=== PATIENT | female | born 1960 | race African-American/Black ===

== ENCOUNTER 2016-04-24 21:23 | Emergency (ER) | payer OTHER ==
[2016-04-24 21:38] VITALS: BP 136/77; PULSE 77; TEMP 97.5; BMI 38.2
[2016-04-24] MEDS ORDERED: ALBUTEROL SO4 2.5/IPRATROPIUM 0.5 INH SOL 3 ML VIAL.NEB. NEB ONE ×3 (21:55→22:32)
--- NOTE | 2016-04-24 22:22 | PDOC ---
History of Present Illness - General Chief Complaint: Sore Throat Stated Complaint: COUGH Time Seen by Provider: 04/24/16 21:48 History Source: Patient Exam Limitations: No Limitations - History of Present Illness Initial Comments: 04/24/16 22:19 CC SORE THROAT AND COUGH, WO FEVER X 1 WEEK; START ON ZPAK AND MEDROL DOSE CONSTANTINO X 2 DAYS AGO; NO BETTER Timing/Duration: 1 week Severity: mild Associated Symptoms: reports: cough, malaise. denies: chest pain, fever/chills , headaches, nausea/vomiting, rash Past History - Past Medical History Allergies/Adverse Reactions: Allergies Allergy/AdvReac Type Severity Reaction Status Date / Time aspirin Allergy Severe Difficulty Verified 04/24/16 21:37 Breathing shellfish derived Allergy Unknown Verified 04/24/16 21:37 SEAFOOD Allergy Severe Difficulty Uncoded 04/24/16 21:37 Breathing Home Medications: Ambulatory Orders Albuterol Sulfate Inhaler - [Ventolin HFA Inhaler -] 2 inh PO Q4H #1 inh Benzocaine/Menthol [[facility] Sore Throat Lozenge] 1 each MM 5XD PRN #30 lozenge 04/24 Anemia: No Asthma: Yes Cancer: No Cardiac Disorders: No CVA: No COPD: No CHF: No Dementia: No Diabetes: No GI Disorders: Yes (ENLARGED PANCREATIC DUCT.) Disorders: No HTN: No Hypercholesterolemia: No Liver Disease: No Suicide Attempt (Hx): No Seizures: No Thyroid Disease: Yes (HYPO) - Surgical History Abdominal Surgery: No Appendectomy: Yes Orthopedic Surgery: Yes (ARTHROSCOPY) - Immunization History Td Vaccination: No TDAP Vaccination: No Immunization Up to Date: Yes - Psycho/Social/Smoking Cessation Hx Anxiety: No Suicidal Ideation: No Smoking Status: Yes Smoking History: Former smoker Have you smoked in the past 12 months: No Number of Cigarettes Smoked Daily: 6 If you are a former smoker, when did you quit?: 4 Information on smoking cessation initiated: No 'Breaking Loose' booklet given: 12/06/13 Hx Alcohol Use: No Drug/Substance Use Hx: No Substance Use Type: None Hx Substance Use Treatment: No Review of Systems - Review of Systems Constitutional: Yes: Malaise. No: Chills, Fever HEENTM: Yes: Nose Pain, Nose Congestion Respiratory: Yes: Cough, Wheezing. No: SOB with Exertion, Stridor, Hemoptysis Cardiac (ROS): No: Symptoms Reported, Chest Pain ABD/GI: No: Symptoms Reported *Physical Exam - Vital Signs Last Vital Signs Temp Pulse Resp BP Pulse Ox 97.5 F L 77 18 136/77 98 04/24/16 21:34 04/24/16 21:34 04/24/16 21:34 04/24/16 21:34 04/24/16 21:34 - Physical Exam General Appearance: Yes: Appropriately Dressed. No: Apparent Distress HEENT: positive: TMs Normal, Tonsillar Erythema, Nasal Congestion, Other (POST NASAL DRIP) Neck: positive: Tender, Rigid, Supple. negative: Lymphadenopathy (R), Lymphadenopathy (L) Respiratory/Chest: positive: Lungs Clear, Normal Breath Sounds, Accessory Muscle Use. negative: Respiratory Distress Cardiovascular: positive: Regular Rhythm, Regular Rate, Murmur Lymphatic: positive: Adenopathy ED Treatment Course - Medications Given in the ED: ED Medications Discontinued Medications Generic Name Dose Route Start Last Admin Trade Name Freq PRN Reason Stop Dose Admin Albuterol/Ipratropium 1 amp 04/24/16 21:55 04/24/16 21:58 Duoneb - NEB 04/24/16 21:56 1 amp ONCE ONE Administration *DC/Admit/Observation/Transfer Diagnosis at time of Disposition: Acute bronchitis with bronchospasm - Discharge Dispostion Disposition: HOME Condition at time of disposition: Stable Admit: No - Prescriptions Prescriptions: Benzocaine/Menthol [[facility] Sore Throat Lozenge] 1 each MM 5XD PRN #30 lozenge PRN Reason: Sore Throat Albuterol Sulfate Inhaler - [Ventolin HFA Inhaler -] 2 inh PO Q4H #1 inh - Referrals Referrals: Maxwell Duran MD [Primary Care Provider] - - Patient Instructions Additional Instructions: SEE DR DURAN EARLY NEXT WEEK; PLEASE READ MEDICATION WELL AT HOME
[2016-04-24] MEDS ORDERED: ALBUTEROL SO4 0.083% IH SOL 2.5 MG/3 ML VIAL.NEB. NEB ONE (22:32)
[2016-04-24] MEDS ORDERED: IBUPROFEN 400 MG TABLET (FP) PO ONE ×2 (22:33→22:35)
== END 2016-04-24 22:39 | disposition home or self-care (01) ==
LOC: SUPCPDRO 21:23 → JERFT 21:23
PROC: 3E0F7GC Introduction of Other Therapeutic Substance into Respiratory Tract, Via Natural or Artificial Opening (ICD-10-PCS; principal; 2016-04-24)
DX: J20.9 Acute bronchitis, unspecified (principal); J45.909 Unspecified asthma, uncomplicated; Z87.891 Personal history of nicotine dependence
CPT/HCPCS: 99281-25

== ENCOUNTER 2016-06-19 09:33 | Emergency (ER) | payer OTHER ==
[2016-06-19 09:37] VITALS: BP 111/74; PULSE 74; TEMP 97.7; BMI 38.1
[2016-06-19] MEDS ORDERED: OXYCODONE/APAP 5/325MG COMBO TABLET PO ONE (11:22)
[2016-06-19] MEDS ORDERED: OXYCODONE/APAP 5/325MG COMBO TABLET ONE (11:24)
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
--- NOTE | 2016-06-21 12:23 | EKG ---
Test Reason : Blood Pressure : / mmHG Vent. Rate : 059 BPM Atrial Rate : 059 BPM P-R Int : 154 ms QRS Dur : 082 ms QT Int : 424 ms P-R-T Axes : 062 045 027 degrees QTc Int : 419 ms SINUS BRADYCARDIA OTHERWISE NORMAL ECG WHEN COMPARED WITH ECG OF 20-JUN-2015 18:53, NO SIGNIFICANT CHANGE WAS FOUND Confirmed by RENAE JOHNSON MD ([id number]) on 06/21/2016 12:22:23 PM Referred By: Raquel TRAYLOR Confirmed By:RENAE JOHNSON MD
== END 2016-06-19 11:35 | disposition home or self-care (01) ==
LOC: JERFT 09:33 → SUPCPDRO 09:33 → JERFT 11:35
DX: M25.512 Pain in left shoulder (principal); G89.29 Other chronic pain; J45.909 Unspecified asthma, uncomplicated; E03.9 Hypothyroidism, unspecified; M12.9 Arthropathy, unspecified
CPT/HCPCS: 73030-TC-LT; 93005; 93010; 99281-25

== ENCOUNTER 2016-08-09 17:04 | Emergency (ER) | payer OTHER ==
--- NOTE | 2016-08-09 17:18 | PDOC ---
Rapid Medical Evaluation Time Seen by Provider: 08/09/16 17:15 Medical Evaluation: Allergies Allergy/AdvReac Type Severity Reaction Status Date / Time aspirin Allergy Severe Difficulty Verified 08/09/16 17:15 Breathing shellfish derived Allergy Unknown Verified 08/09/16 17:15 SEAFOOD Allergy Severe Difficulty Uncoded 08/09/16 17:15 Breathing 08/09/16 17:15 I have performed a brief in-person evaluation of this patient. The patient presents with a chief complaint of: Worsening pain to R index s/p getting pricked by metal bristle of brush while at work 5 days ago, Pertinent physical exam findings: tenderness to lateral aspect of distal phalanx of R index, no sig swelling, no redness or discharge, no palpable fb I have ordered the following:XR r/o fb The patient will proceed to the ED for further evaluation.
[2016-08-09 17:19] VITALS: BP 134/86; PULSE 80; TEMP 97.8; BMI 39.0
[2016-08-09] MEDS ORDERED: DIPHTH,PERTUSS(ACELL),TET 0.5 ML DISP.SYRIN IM ONE (18:02)
--- NOTE | 2016-08-09 18:09 | PDOC ---
History of Present Illness - General Chief Complaint: Injury Stated Complaint: INJURY Time Seen by Provider: 08/09/16 17:15 History Source: Patient Exam Limitations: No Limitations - History of Present Illness Initial Comments: 08/09/16 18:04 55 yr female with injury to right index finger one week ago at work. 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 Pt here for tetanus shot. Occurred: reports: last week Severity: reports: mild Upper Extremity Pain Location: right: 2nd finger Past History - Past Medical History Allergies/Adverse Reactions: Allergies Allergy/AdvReac Type Severity Reaction Status Date / Time aspirin Allergy Severe Difficulty Verified 08/09/16 18:42 Breathing shellfish derived Allergy Unknown Verified 08/09/16 18:42 SEAFOOD Allergy Severe Difficulty Uncoded 08/09/16 18:42 Breathing Home Medications: Ambulatory Orders Levothyroxine [Synthroid -] 100 mcg PO DAILY 11/28/13 Diphenhydramine HCl [Benadryl -] 25 mg PO Q6H PRN #28 capsule 08/10/16 Methylprednisolone [Medrol Dose Kwame] 4 mg PO ASDIR #21 tablet 08/10/16 Anemia: No Asthma: Yes Cancer: No Cardiac Disorders: No CVA: No COPD: Yes (MILD) CHF: No Dementia: No Diabetes: No GI Disorders: Yes (ENLARGED PANCREATIC DUCT.) Disorders: No HTN: No Hypercholesterolemia: No Liver Disease: No Suicide Attempt (Hx): No Seizures: No Thyroid Disease: Yes (HYPO) - Surgical History Abdominal Surgery: Yes Appendectomy: Yes Orthopedic Surgery: Yes (ARTHROSCOPY) - Immunization History Td Vaccination: No TDAP Vaccination: No Immunization Up to Date: Yes - Psycho/Social/Smoking Cessation Hx Anxiety: No Suicidal Ideation: No Smoking Status: Yes Smoking History: Never smoked Have you smoked in the past 12 months: No Number of Cigarettes Smoked Daily: 6 If you are a former smoker, when did you quit?: 4 Information on smoking cessation initiated: No 'Breaking Loose' booklet given: 12/06/13 Hx Alcohol Use: No Drug/Substance Use Hx: No Substance Use Type: None Hx Substance Use Treatment: No Review of Systems - Review of Systems Able to Perform ROS?: Yes Is the patient limited Romanian proficient: No Constitutional: No: Symptoms Reported HEENTM: No: Symptoms Reported Respiratory: No: Symptoms reported Cardiac (ROS): No: Symptoms Reported : No: Symptoms Reported Integumentary: Yes: Symptoms Reported *Physical Exam - Vital Signs Last Vital Signs Temp Pulse Resp BP Pulse Ox 97.8 F 80 18 134/86 100 08/09/16 17:17 08/09/16 17:17 08/09/16 17:17 08/09/16 17:17 08/09/16 17:17 - Physical Exam General Appearance: Yes: Nourished, Appropriately Dressed HEENT: positive: EOMI, CHARY, Normal Voice, TMs Normal, Pharynx Normal Neck: positive: Supple. negative: Tender Respiratory/Chest: positive: Lungs Clear, Normal Breath Sounds Cardiovascular: positive: Regular Rhythm, Regular Rate Gastrointestinal/Abdominal: positive: Normal Bowel Sounds, Soft Musculoskeletal: positive: Normal Inspection Extremity: positive: Normal Capillary Refill, Normal Inspection, Normal Range of Motion, Other (right index finger nv intact, decreased sensation to lateral tip of the index finger, no redness no drainage. ) Integumentary: positive: Normal Color, Dry, Warm Neurologic: positive: Fully Oriented, Alert, Normal Mood/Affect, Normal Response , Motor Strength 5/5 Medical Decision Making - Medical Decision Making 08/09/16 18:09 cc: index finger injury last week stuck with a metal piece of wire brush will get xray to r/o FB pt has FROM of the finger, sensation decreased to the lateral tip at the DIP will refer to hand surgeon for follow up pt asking for tetanus shot. pt understands the xray findings, the dc plan all follow up procedures have been explained. all questions asked and answered at discharge. pt will follow up with the hand surgeon. 08/10/16 12:44 *DC/Admit/Observation/Transfer Diagnosis at time of Disposition: Finger pain, right - Discharge Dispostion Disposition: HOME Condition at time of disposition: Good - Referrals Referrals: Maxwell Cruz MD [Primary Care Provider] - Pola Amin MD [Staff Physician] - - Patient Instructions Additional Instructions: follow with the hand surgeon for continued pain follow with your employee health department '
== END 2016-08-09 18:30 | disposition home or self-care (01) ==
LOC: JERFT 17:04
DX: S69.81XA Other specified injuries of right wrist, hand and finger(s), initial encounter (principal); W22.8XXA Striking against or struck by other objects, initial encounter; Y93.89 Activity, other specified; Y92.218 Other school as the place of occurrence of the external cause; Y99.0 Civilian activity done for income or pay
CPT/HCPCS: 73140-TC-RT; 90715; 99281-25

== ENCOUNTER → 2016-08-09 | Emergency (ER) | payer OTHER ==
[~2016-08-09] MED LIST: diphenhydrAMINE HCL 25 MG CAPSULE (FP) PO ONE; predniSONE 20 MG TABLET (UD) ONE; predniSONE 20 MG TABLET (UD) PO ONE
--- NOTE | 2016-08-09 18:47 | PDOC ---
Rapid Medical Evaluation Chief Complaint: Allergic Reaction Time Seen by Provider: 08/09/16 18:43 Medical Evaluation: Allergies Allergy/AdvReac Type Severity Reaction Status Date / Time aspirin Allergy Severe Difficulty Verified 08/09/16 18:42 Breathing shellfish derived Allergy Unknown Verified 08/09/16 18:42 SEAFOOD Allergy Severe Difficulty Uncoded 08/09/16 18:42 Breathing 08/09/16 18:43 I have performed a brief in-person evaluation of this patient. The patient presents with a chief complaint of: Seen in ED for finger injury several minutes ago and given tetanus, returns now w/ hoarseness that started immediately after getting tetanus vaccine as per pt. Of note, has had tetanus vaccine in the past with no adverse rxn, no tongue swelling, sob, rash or pruritis Pertinent physical exam findings: Stable w/ +hoarseness, no tongue swelling, stridor w/ clear chest/lungs I have ordered the following: The patient will proceed to the ED for further evaluation. 08/09/16 18:47
[2016-08-09 18:50] VITALS: BP 140/79; PULSE 81; TEMP 97.6; BMI 39.0
--- NOTE | 2016-08-09 20:49 | PDOC ---
History of Present Illness - General Chief Complaint: Allergic Reaction Stated Complaint: THROAT PAIN Time Seen by Provider: 08/09/16 18:43 History Source: Patient Exam Limitations: No Limitations - History of Present Illness Initial Comments: 08/09/16 20:43 55yo Female patient presents to ED after being seen in [facility] about 1 hour ago. Patient initial was seen in [facility] for work injury that required Tetanus vaccination. Patient states that after receiving vaccination she immediately tasted a metallic taste in her mouth. She went upstairs to the cafe and shortly after felt tingling in her lips and throat. Patient states she felt like she was having an allergic reaction. Patient was given Benadryl po with symptoms improvement. Tetanus made by [employer]. Boostrix. Lot [id number], exp: 10-15-2016. 0.5mL. Timing/Duration: reports: just prior to arrival Severity: reports: mild Episode Description: See HPI Possible Cause: Yes: no prior episodes Modifying Factors: worse with: activity, albuterol inhaler, albuterol nebulizer , antibiotics, coughing, lying down, oxygen, rest, other Associated Symptoms: denies: denies symptoms, chest pain/soreness, cough, dizziness, earache, facial pain, fever/chills, headache, lightheadedness, muscle aches, nasal congestion, nasal drainage, shortness of breath, sinus infection, sore throat, wheezing, other Past History - Travel Traveled outside of the country in the last 30 days: No Close contact w/someone who was outside of country & ill: No - Past Medical History Allergies/Adverse Reactions: Allergies Allergy/AdvReac Type Severity Reaction Status Date / Time aspirin Allergy Severe Difficulty Verified 08/09/16 18:42 Breathing shellfish derived Allergy Unknown Verified 08/09/16 18:42 SEAFOOD Allergy Severe Difficulty Uncoded 08/09/16 18:42 Breathing Home Medications: Ambulatory Orders Levothyroxine [Synthroid -] 100 mcg PO DAILY 11/28/13 Methylprednisolone [Medrol Dose Kwame] 4 mg PO ASDIR #21 tablet 08/09/16 Anemia: No Asthma: Yes Cancer: No Cardiac Disorders: No CVA: No COPD: Yes (MILD) CHF: No Dementia: No Diabetes: No GI Disorders: Yes (ENLARGED PANCREATIC DUCT.) Disorders: No HTN: No Hypercholesterolemia: No Liver Disease: No Suicide Attempt (Hx): No Seizures: No Thyroid Disease: Yes (HYPO) - Surgical History Abdominal Surgery: Yes Appendectomy: Yes Orthopedic Surgery: Yes (ARTHROSCOPY) - Immunization History Td Vaccination: No TDAP Vaccination: No Immunization Up to Date: Yes - Psycho/Social/Smoking Cessation Hx Anxiety: No Suicidal Ideation: No Smoking Status: Yes Smoking History: Never smoked Have you smoked in the past 12 months: No Number of Cigarettes Smoked Daily: 6 If you are a former smoker, when did you quit?: 4 Information on smoking cessation initiated: No 'Breaking Loose' booklet given: 12/06/13 Hx Alcohol Use: No Drug/Substance Use Hx: No Substance Use Type: None Hx Substance Use Treatment: No Respiratory Specific PMHX - Complaint Specific PMHX Angina: No Bronchitis: No Pneumonia: No Pulmonary Embolus: No TB (Tuberculosis): No Review of Systems - Review of Systems Able to Perform ROS?: Yes Is the patient limited [place]ese proficient: No HEENTM: Yes: Other (Change in voice.). No: Eye Pain, Blurred Vision, Tearing, Double Vision, Ear Pain, Ear Discharge, Nose Pain, Nose Congestion, Tinnitus, Hearing Loss, Throat Pain, Throat Swelling, Mouth Pain, Dental Problems, Difficulty Swallowing, Mouth Swelling Respiratory: No: Cough, Wheezing Cardiac (ROS): No: Chest Pain, Lightheadedness, Syncope, Chest Tightness ABD/GI: No: Diarrhea, Difficulty Swallowing, Nausea, Vomiting All Other Systems: Reviewed and Negative *Physical Exam - Vital Signs Last Vital Signs Temp Pulse Resp BP Pulse Ox 97.6 F 81 18 140/79 100 08/09/16 18:43 08/09/16 18:43 08/09/16 18:43 08/09/16 18:43 08/09/16 18:43 - Physical Exam General Appearance: Yes: Nourished, Appropriately Dressed. No: Apparent Distress, Mild Distress, Moderate Distress, Severe Distress HEENT: positive: EOMI, CHARY, Normal ENT Inspection, Normal Voice, Symmetrical, TMs Normal, Pharynx Normal. negative: Pharyngeal Erythema, Tonsillar Exudate, Tonsillar Erythema, Nasal Congestion, Rhinorrhea, TM Bulging, TM Dull, TM Erythema, Excessive drooling Neck: positive: Trachea midline, Supple. negative: Tender, Normal Thyroid, Rigid, Decreased range of motion, Stridor, Lymphadenopathy (R), Lymphadenopathy (L), Rigidity Respiratory/Chest: positive: Lungs Clear, Normal Breath Sounds. negative: Chest Tender, Respiratory Distress, Accessory Muscle Use, Labored Respiration, Rapid RR, Decreased Breath Sounds, Paradoxal Breathing, Crackles, Rales, Rhonchi , Stridor, Wheezing Cardiovascular: positive: Regular Rhythm, Regular Rate. negative: Tachycardia Gastrointestinal/Abdominal: positive: Normal Bowel Sounds, Soft. negative: Distended, Guarding, Rebound, Tenderness, Hernia, Mass Musculoskeletal: positive: Normal Inspection. negative: CVA Tenderness Extremity: positive: Normal Capillary Refill, Normal Inspection, Normal Range of Motion. negative: Pedal Edema, Swelling, Calf Tenderness, Erythema, Inflammation Integumentary: positive: Normal Color, Dry, Warm. negative: Erythema, Pale, Cold, Clammy, Diaphoresis, Moist, Hives, Rash, Swelling Neurologic: positive: tattoo technician II-XII NML intact, Fully Oriented, Alert, Normal Mood/ Affect, Normal Response, Motor Strength 06/25 ED Treatment Course - Medications Given in the ED: ED Medications Discontinued Medications Generic Name Dose Route Start Last Admin Trade Name Adrianna PRN Reason Stop Dose Admin Diphenhydramine HCl 25 mg 08/09/16 18:49 08/09/16 18:53 Benadryl - PO 08/09/16 18:50 25 mg ONCE ONE Administration *DC/Admit/Observation/Transfer Diagnosis at time of Disposition: Allergic reaction caused by a drug Qualifiers: Encounter type: initial encounter Qualified Code(s): T78.40XA - Allergy, unspecified, initial encounter - Discharge Dispostion Disposition: HOME Condition at time of disposition: Improved Admit: No - Prescriptions Prescriptions: Methylprednisolone [Medrol Dose Kwame] 4 mg PO ASDIR #21 tablet - Patient Instructions Printed Discharge Instructions: DI for Adverse Drug Reaction -- Allergic Additional Instructions: FOLLOW UP WITH DR DURAN THIS WEEK. CALL TO SCHEDULE APPOINTMENT. TAKE MEDICATIONS PRESCRIBED. RETURN IF SYMPTOMS WORSEN OR ANY CONCERNS FOR FURTHER EVALUATION. Print Language: BELARUSIAN
== END | disposition home or self-care (01) ==
LOC: JER 18:40
DX: R20.2 Paresthesia of skin (principal); T50.A15A Adverse effect of pertussis vaccine, including combinations with a pertussis component, initial encounter; Y92.233 Cafeteria of hospital as the place of occurrence of the external cause
CPT/HCPCS: 99281-25

== ENCOUNTER 2016-09-26 16:10 | Emergency (ER) | payer OTHER ==
[2016-09-26 16:27] VITALS: BP 122/87; PULSE 86; TEMP 98; BMI 31.0
[2016-09-26] MEDS ORDERED: ACETAMINOPHEN 500 MG TABLET (FP) PO ONE (17:22)
[2016-09-26] MEDS ORDERED: ACETAMINOPHEN 500 MG TABLET (FP) ONE (17:25)
--- NOTE | 2016-09-26 17:28 | PDOC ---
History of Present Illness - General Chief Complaint: Pain, Acute Stated Complaint: SWOLLEN HAND Time Seen by Provider: 09/26/16 17:05 History Source: Patient Exam Limitations: No Limitations - History of Present Illness Initial Comments: 09/26/16 18:46 MY CHIEF COMPLAINT: LEFT UPPER ARM SUDDEN BRUISE, LEFT UPPER ARM SWELLING , LEFT HAND PAIN History of Present illness: Patient is a 55-year-old female with a history of hypothyroidism, hyperlipidemia, carpel tunnel and COPD and enlargement of pancreatic duct here today concerned about noticing a bruise on her left medial upper arm yesterday and noticing swelling slightly above her left elbow medial aspect yesterday. Patient also reports having left mid palm pain intermittently for the last 4 days with numbness of second and third finger on 09/23/16 and 2016. Patient denies any injury to her left arm or elbow area or forearm or hand. 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 She denies any neck pain. He denies any other injuries. Or any other symptoms. 09/26/16 18:49 Timing/Duration: intermittent (bruise left medial upper arm, left ) Severity: mild (l) Associated Symptoms: reports: other (bruise left medial upper arm, swelling slightly proximal to left elbow medially, pain mid left palm intermittently) Past History - Past Medical History Allergies/Adverse Reactions: Allergies Allergy/AdvReac Type Severity Reaction Status Date / Time aspirin Allergy Severe Difficulty Verified 09/26/16 16:23 Breathing shellfish derived Allergy Unknown Verified 09/26/16 16:23 SEAFOOD Allergy Severe Difficulty Uncoded 09/26/16 16:23 Breathing Home Medications: Ambulatory Orders Levothyroxine [Synthroid -] 100 mcg PO DAILY 11/28/13 Rosuvastatin Calcium [Crestor] 20 mg PO HS 09/26/16 Anemia: No Asthma: Yes Cancer: No Cardiac Disorders: No CVA: No COPD: Yes (MILD) CHF: No Dementia: No Diabetes: No GI Disorders: Yes (ENLARGED PANCREATIC DUCT.) Disorders: No HTN: No Hypercholesterolemia: No Liver Disease: No Suicide Attempt (Hx): No Seizures: No Thyroid Disease: Yes (HYPO) - Surgical History Abdominal Surgery: Yes Appendectomy: Yes Orthopedic Surgery: Yes (ARTHROSCOPY) - Immunization History Td Vaccination: No TDAP Vaccination: No Immunization Up to Date: Yes - Psycho/Social/Smoking Cessation Hx Anxiety: No Suicidal Ideation: No Smoking Status: Yes Smoking History: Former smoker Have you smoked in the past 12 months: No Number of Cigarettes Smoked Daily: 6 If you are a former smoker, when did you quit?: 5 Information on smoking cessation initiated: No 'Breaking Loose' booklet given: 12/06/13 Hx Alcohol Use: No Drug/Substance Use Hx: No Substance Use Type: None Hx Substance Use Treatment: No Review of Systems - Review of Systems Able to Perform ROS?: Yes Constitutional: No: Symptoms Reported HEENTM: No: Symptoms Reported Respiratory: No: Symptoms reported Cardiac (ROS): No: Symptoms Reported ABD/GI: No: Symptoms Reported : No: Symptoms Reported Musculoskeletal: Yes: Joint Pain (left palm mid intermittent for 4 days with numbness of left 2nd & 3rd fingers on 09/23& 09/24), Joint Swelling (left dorsal hand/fingers yesterday ), Other (left medial arm slightly proximal to left elbow , bruise quarter size left upper medial arm) Integumentary: Yes: Bruising (left upper medial arm quarter size bruise) Neurological: Yes: Numbness (left 2nd& 3rd fingers ) *Physical Exam - Vital Signs Last Vital Signs Temp Pulse Resp BP Pulse Ox 98.0 F 86 17 122/87 99 09/26/16 16:24 09/26/16 16:24 09/26/16 16:24 09/26/16 16:24 09/26/16 16:24 - Physical Exam General Appearance: Yes: Appropriately Dressed Neck: positive: Lymphadenopathy (R). negative: Tender, Lymphadenopathy (L), Rigidity, Tender lateral, Tender midline Respiratory/Chest: positive: Lungs Clear, Normal Breath Sounds. negative: Chest Tender, Respiratory Distress Cardiovascular: positive: Regular Rhythm, Regular Rate, S1, S2 Comments:: 09/26/16 17:34 radial pulse left 4+ Musculoskeletal: negative: Normal Inspection, CVA Tenderness, CVA Tenderness (R) , CVA Tenderness (L) Extremity: positive: Normal Capillary Refill, Normal Range of Motion (left shoulder/elbow, wrist and all digits left ahnd ), Tender, Swelling (left medial upper arm slightly proximal to left elbow). negative: Normal Inspection (left medial arm slightly proximal to left elbow) Integumentary: positive: Bruising (left upper medial arm quarter size bruise) Neurologic: positive: Alert, Normal Response, Motor Strength 5/5 (left arm ), Respond to painful stimul, Responsive, Other (negative Tinel/phalen left ). negative: Numbness, Sensory Deficit (left hand and all digits ) Procedures - Consent Consent obtained: From Patient - Splinting Splint Location: Left: Wrist Pre-Proc Neuro Vasc Exam: normal Sling: No Complications: No Medical Decision Making - Medical Decision Making 09/26/16 18:51 Patient is a 55-year-old female with a history of hypothyroidism, hyperlipidemia, carpel tunnel and COPD and enlargement of pancreatic duct here today concerned about noticing a bruise on her left medial upper arm yesterday and noticing swelling slightly above her left elbow medial aspect yesterday. Patient also reports having left mid palm pain intermittently for the last 4 days with numbness of second and third finger on 09/23/16 and 09/24/2016. Patient denies any injury to her left arm or elbow area or forearm or hand. 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 She denies any neck pain. He denies any other injuries. Or any other symptoms. Left upper arm spontaneous bruising quarter size Left medial upper arm swelling rule out DVT Left Palm intermittent pain system was symptoms of carpal tunnel Plan: Venous US of left upper arm to rule out DVT NEGATIVE WRIST IMMOBILIZER LEFT WRIST FOLLOW UP WITH YOUR ORTHOPEDIST 09/26/16 19:35 09/26/16 23:40 *DC/Admit/Observation/Transfer Diagnosis at time of Disposition: Swelling of arm, Hand pain, left Superficial bruising of upper limb Qualifiers: Encounter type: initial encounter Laterality: left Qualified Code(s): S40.022A - Contusion of left upper arm, initial encounter - Discharge Dispostion Disposition: HOME Condition at time of disposition: Stable - Referrals Referrals: Maxwell Cruz MD [Primary Care Provider] - - Patient Instructions Additional Instructions: Follow-up with your orthopedist as soon as possible for further evaluation Avoid any heavy lifting using her left arm or any exercise for the next few days until cleared by orthopedist to do so Take acetaminophen as needed as directed by exhaust and muffler repairer for pain Return to emergency room if increased swelling of left arm redness or fever Wear a wrist immobilizer during the day take off at night Patient voiced understanding of discharge instructions and all questions were answered - Post Discharge Activity Work/School Note: Back to Work
== END 2016-09-26 19:42 | disposition home or self-care (01) ==
LOC: JERFT 16:10
DX: S40.022A Contusion of left upper arm, initial encounter (principal); M79.89 Other specified soft tissue disorders; M79.642 Pain in left hand; E03.9 Hypothyroidism, unspecified; E78.5 Hyperlipidemia, unspecified; J44.9 Chronic obstructive pulmonary disease, unspecified; G56.00 Carpal tunnel syndrome, unspecified upper limb
CPT/HCPCS: 93971; 99281-25

== ENCOUNTER 2016-10-08 05:49 | Day surgery (SDC) | payer OTHER ==
[2016-10-07 10:43] VITALS: BMI 31.1
[2016-10-08] MEDS ORDERED: LIDOCAINE HCL 2% (20ML MULTI-DOSE VIAL) NR ONE (07:02)
[2016-10-08] MEDS ORDERED: MIDAZOLAM HCL 2 MG/2 ML SINGLE DOSE VIAL ONE (07:19)
[2016-10-08] MEDS ORDERED: PROPOFOL 20 ML ONE ×2 (07:31)
[2016-10-08] MEDS ORDERED: SUCCINYLCHOLINE CHLORIDE 200 MG/10 ML VIAL ONE (07:31)
[2016-10-08] MEDS ORDERED: ONDANSETRON 4 MG/2 ML VIAL ONE (07:45)
[2016-10-08] MEDS ORDERED: ceFAZolin SODIUM 1 GM VIAL ONE (07:48)
[2016-10-08] MEDS ORDERED: LIDOCAINE HCL 1%, 10 MG/ML (20ML VIAL) IJ ONE (07:56)
[2016-10-08 09:02] VITALS: BP 124/71; PULSE 76; TEMP 98
--- NOTE | 2016-10-12 00:54 | OP ---
DATE OF OPERATION: 10/08/2016 SURGEON: Lane Nava M.D. FLOOR COVERINGS INSTALLER: Cherri Cruz PREOPERATIVE DIAGNOSIS: Left carpal tunnel syndrome. POSTOPERATIVE DIAGNOSIS: Left carpal tunnel syndrome. PROCEDURE: Left carpal tunnel release. FINDINGS: Thickened transcarpal ligament with a median nerve. PROCEDURE: Under sterile conditions, the upper extremity was prepped and draped in a sterile fashion. Incision was made along the longitudinal portion of the carpal tunnel. A longitudinal incision was made along the proximal portion of the palm, following the palm crease. This was taken down to the transcarpal ligament, which was released initially with scalpel and then extended proximally and distally using blunt tenotomy scissors. The median nerve was identified and completely released from impingement by the transcarpal ligament. The wound was then irrigated with copious amounts of irrigation. Skin was closed with 5-0 nylon in single interrupted sutures. Dmitry [id number]
== END 2016-10-08 09:16 | disposition home or self-care (01) ==
LOC: FASU 05:49
PROVIDERS: ATTEND Orthopaedic Surgery
PROC: 01N50ZZ Release Median Nerve, Open Approach (ICD-10-PCS; principal; 2016-10-08 07:51)
DX: G56.02 Carpal tunnel syndrome, left upper limb (principal)

== ENCOUNTER 2017-03-08 15:40 | Emergency (ER) | payer OTHER ==
[2017-03-08 16:20] VITALS: BP 140/88; PULSE 80; TEMP 98.2; BMI 31.1
[2017-03-08] MEDS ORDERED: traMADol HCL 50 MG TABLET PO ONE (16:20)
--- NOTE | 2017-03-08 16:20 | PDOC ---
Rapid Medical Evaluation Time Seen by Provider: 03/08/17 16:15 Medical Evaluation: Allergies Allergy/AdvReac Type Severity Reaction Status Date / Time aspirin Allergy Severe Difficulty Verified 10/07/16 10:30 Breathing shellfish derived Allergy Unknown Verified 10/07/16 10:30 SEAFOOD Allergy Severe Difficulty Uncoded 10/07/16 10:30 Breathing 03/08/17 16:16 I have performed a brief in-person evaluation of this patient. The patient presents with a chief complaint of pain to left shoulder that radiates from left side of neck since Tuesday. Reports no injury or heavy lifting. States had same pain in the past and diagnosed with arthritis treated with ibuprofen. Took no medication today so far. Pertinent physical exam findings: NAD HEENT: neck supple, mskL: no mid cervical spinal tenderness or para cervical tenderness FROM of left shoulder lungs clear bilat I have ordered the following: analgesia The patient will proceed to the Ed for further evaluation.
--- NOTE | 2017-03-08 18:15 | PDOC ---
History of Present Illness - General Chief Complaint: Pain, Acute Stated Complaint: LEFT SIDE PAIN Time Seen by Provider: 03/08/17 16:15 History Source: Patient Exam Limitations: No Limitations Past History - Past Medical History Allergies/Adverse Reactions: Allergies Allergy/AdvReac Type Severity Reaction Status Date / Time aspirin Allergy Severe Difficulty Verified 03/08/17 16:16 Breathing shellfish derived Allergy Unknown Verified 03/08/17 16:16 SEAFOOD Allergy Severe Difficulty Uncoded 03/08/17 16:16 Breathing Home Medications: Ambulatory Orders Levothyroxine [Synthroid -] 100 mcg PO DAILY 11/28/13 Oxycodone HCl/Acetaminophen [Percocet 5-325 mg Tablet] 1 tab PO Q6H PRN #10 tablet MDD 6 tabs 03/08/17 Anemia: No Asthma: Yes Cancer: No Cardiac Disorders: No CVA: No COPD: Yes (MILD) CHF: No Dementia: No Diabetes: No GI Disorders: Yes (ENLARGED PANCREATIC DUCT.) Disorders: No HTN: No Hypercholesterolemia: No Liver Disease: No Seizures: No Thyroid Disease: Yes (HYPO) - Surgical History Abdominal Surgery: Yes Appendectomy: Yes Cardiac Surgery: No Cholecystectomy: No Lung Surgery: No Neurologic Surgery: No Orthopedic Surgery: Yes (ARTHROSCOPY R KNEE) - Immunization History Td Vaccination: No TDAP Vaccination: No Immunization Up to Date: Yes - Suicide/Smoking/Psychosocial Hx Smoking Status: Yes Smoking History: Never smoked Have you smoked in the past 12 months: No Number of Cigarettes Smoked Daily: 6 If you are a former smoker, when did you quit?: 5 yrs ago Information on smoking cessation initiated: No 'Breaking Loose' booklet given: 12/06/13 Hx Alcohol Use: No Drug/Substance Use Hx: No Substance Use Type: None Hx Substance Use Treatment: No *Physical Exam - Vital Signs Last Vital Signs Temp Pulse Resp BP Pulse Ox 98.2 F 80 14 140/88 100 03/08/17 16:17 03/08/17 16:17 03/08/17 16:17 03/08/17 16:17 03/08/17 16:17 ED Treatment Course - RADIOLOGY Radiology Studies Ordered: Category Date Time Status SHOULDER-LEFT [RAD] Stat Radiology 03/08/17 18:03 Ordered - Medications Given in the ED: ED Medications Discontinued Medications Generic Name Dose Route Start Last Admin Trade Name Freq PRN Reason Stop Dose Admin Tramadol HCl 50 mg 03/08/17 16:20 03/08/17 17:38 Ultram - PO 03/08/17 16:21 Not Given ONCE ONE *DC/Admit/Observation/Transfer Diagnosis at time of Disposition: Shoulder pain, left Qualifiers: Chronicity: chronic Qualified Code(s): M25.512 - Pain in left shoulder - Discharge Dispostion Disposition: HOME Condition at time of disposition: Good - Prescriptions Prescriptions: Oxycodone HCl/Acetaminophen [Percocet 5-325 mg Tablet] 1 tab PO Q6H PRN #10 tablet MDD 6 tabs PRN Reason: Severe Pain - Referrals Referrals: Maxwell Cruz MD [Primary Care Provider] - Harjinder Cochran MD [Staff Physician] - - Patient Instructions Additional Instructions: take percocet for severe pain as needed use the sling while awake remove to sleep and bathe apply ice every 2hrs for 20 minutes to the area of pain please follow with your primary care or with the orthopedist for follow up this week or next week - Post Discharge Activity Forms/Work/School Notes: Back to Work
== END 2017-03-08 18:30 | disposition home or self-care (01) ==
LOC: JERFT 15:40
DX: M25.512 Pain in left shoulder (principal); J45.909 Unspecified asthma, uncomplicated; J44.9 Chronic obstructive pulmonary disease, unspecified; Z87.891 Personal history of nicotine dependence
CPT/HCPCS: 73030-TC-LT; 99281-25

== ENCOUNTER 2017-05-27 05:54 | Day surgery (SDC) | payer OTHER ==
[2017-05-23 11:01] VITALS: BMI 39.0
[2017-05-27] MEDS ORDERED: DEXAMETHASONE SOD PHOSPHATE/PF 10 MG/ML SDV ONE (06:52)
[2017-05-27] MEDS ORDERED: ROPIVACAINE HCL 0.5% 30ML VIAL ONE (06:52)
[2017-05-27] MEDS ORDERED: MIDAZOLAM HCL 2 MG/2 ML SINGLE DOSE VIAL ONE (06:52)
[2017-05-27] MEDS ORDERED: PROPOFOL 20 ML ONE ×3 (07:40)
[2017-05-27] MEDS ORDERED: EPINEPHrine 1:1,000 1 MG/1 ML - 30ML VIAL (INJECTION) ONE (07:40)
[2017-05-27] MEDS ORDERED: SUCCINYLCHOLINE CHLORIDE 200 MG/10 ML VIAL ONE (07:41)
[2017-05-27] MEDS ORDERED: ONDANSETRON 4 MG/2 ML VIAL IVPUSH PRN (08:55)
[2017-05-27] MEDS ORDERED: oxyCODONE HCL 5 MG TABLET PO PRN ×2 (08:55)
[2017-05-27] MEDS ORDERED: PROMETHAZINE HCL 25 MG/1 ML VIAL IVPB PRN (08:55)
[2017-05-27] MEDS ORDERED: LACTATED RINGERS SOLUTION 1,000 ML IV SCH (09:00)
[2017-05-27] MEDS ORDERED: PROMETHAZINE HCL 25 MG/1 ML VIAL ONE (09:38)
[2017-05-27 10:39] VITALS: TEMP 98
[2017-05-27] MEDS ORDERED: oxyCODONE HCL 5 MG TABLET ONE (12:26)
[2017-05-27 13:48] VITALS: BP 135/78; PULSE 71
--- NOTE | 2017-05-29 20:41 | OP ---
DATE OF OPERATION: 05/27/2017 LOCATION: [facility] SURGEON: Abdon Blake MD [employer] INFORMATION CLERK: PREOPERATIVE DIAGNOSIS: 1. Left shoulder rotator cuff tear. 2. Left shoulder adhesive capsulitis. 3. Left shoulder impingement syndrome. 4. Left shoulder acromioclavicular joint disease. 5. Left shoulder superior labral tear anterior posterior type 4. POSTOPERATIVE DIAGNOSIS: 1. Left shoulder rotator cuff tear. 2. Left shoulder adhesive capsulitis. 3. Left shoulder impingement syndrome. 4. Left shoulder acromioclavicular joint disease. 5. Left shoulder superior labral anterior posterior type 4. PROCEDURE: 1. Left shoulder arthroscopy with arthroscopic rotator cuff repair. CPT code 67563. 2. Left shoulder arthroscopy with lysis and resection of adhesions. CPT code 12325. 3. Left shoulder arthroscopy with subacromial decompression. CPT code 02447. 4. Left shoulder arthroscopy with resection distal clavicle, acromioclavicular joint. CPT code 83437. 5. Left shoulder arthroscopy with debridement. CPT code 90414. FINDINGS: 1. Full-thickness rotator cuff tear, anterior supraspinatus. 2. Biceps dislocation with extensive subscapularis tear. 3. Type 2-4 superior labral tear extending into the biceps tendon. 4. Anterior labral fraying. 5. Posterior labral fraying. 6. Type II acromion with anterolateral spurring. 7. distal clavicle with large inferior osteophyte. 8. Partial-thickness infraspinatus tear. 9. Full-thickness supraspinatus tear. REPAIR TYPE: Single mattress suture was placed into the supraspinatus and secured to a bleeding bone bed using the OPUS technique. Biceps tendon was released and debrided back to superior labrum. Subscapularis tear was also debrided, taking it back to a stable portion. PROCEDURE: Informed consent was obtained. The patient was taken to the operating room where the upper extremity was prepped and draped in a sterile fashion. The shoulder was manipulated for a full range of motion. Posterior incision portal was made and directed to glenohumeral joint. Under direct visualization, an anterior incision and portal was made. Extensive synovitis, as well as chondral injuries throughout the glenohumeral joint were dbrided and removed. Any identified labral injuries, including superior labral tear, anterior and posterior, and anterior labrum torn portions were removed as well. Rotator cuff was visualized and noted to have full-thickness tear. The edges were debrided. Posterior incision portal was redirected to subacromial space where a lateral incision portal was made. Excessive and thickened scar tissue noted throughout the subacromial space, including bursal and scar tissue, were removed. The type 2 acromion was converted into a flattened type 1 using a silvia for subacromial decompression. Distal inferior spur at the distal clavicle was also dbrided with the use of accessory portal in the AC joint. The edges of the rotator cuff were identified. Sutures were placed into the rotator cuff and secured using anchors throughout the greater tuberosity. Prior to securing, a bleeding bed was made using a small silvia, creating a bleeding surface of the rotator cuff insertion. The shoulder was then drained. A single suture as placed on all portals and a sterile dressing was placed. The patient was transferred to the recovery room without complication. ABDON BLAKE M.D. [id number]
== END 2017-05-27 13:30 | disposition home or self-care (01) ==
LOC: FASU 05:54
PROVIDERS: ATTEND Orthopaedic Surgery
PROC: 0RNK4ZZ Release Left Shoulder Joint, Percutaneous Endoscopic Approach (ICD-10-PCS; 2017-05-27)
PROC: 0PBB4ZZ Excision of Left Clavicle, Percutaneous Endoscopic Approach (ICD-10-PCS; 2017-05-27)
PROC: 0RBK4ZZ Excision of Left Shoulder Joint, Percutaneous Endoscopic Approach (ICD-10-PCS; 2017-05-27)
PROC: 0MM24ZZ Reattachment of Left Shoulder Bursa and Ligament, Percutaneous Endoscopic Approach (ICD-10-PCS; 2017-05-27)
PROC: 0LB24ZZ Excision of Left Shoulder Tendon, Percutaneous Endoscopic Approach (ICD-10-PCS; principal; 2017-05-27 07:30)
DX: M75.102 Unspecified rotator cuff tear or rupture of left shoulder, not specified as traumatic (principal); M75.02 Adhesive capsulitis of left shoulder; M75.42 Impingement syndrome of left shoulder; M19.012 Primary osteoarthritis, left shoulder; S43.432A Superior glenoid labrum lesion of left shoulder, initial encounter; X58.XXXA Exposure to other specified factors, initial encounter; Y93.9 Activity, unspecified; Y92.9 Unspecified place or not applicable
CPT/HCPCS: 94760

== ENCOUNTER 2019-05-18 19:10 | Emergency (ER) | payer OTHER ==
[2019-05-18 19:16] VITALS: BP 121/100; PULSE 86; TEMP 97.5; BMI 37.1
[2019-05-18] MEDS ORDERED: SODIUM CHLORIDE 0.9% 500 ML INFUS.BAG IV ONE (19:40)
--- NOTE | 2019-05-18 20:15 | PDOC ---
History of Present Illness - General Chief Complaint: Pain Stated Complaint: NECK PAIN Time Seen by Provider: 05/18/19 19:23 History Source: Patient Exam Limitations: No Limitations - History of Present Illness Initial Comments: 05/18/19 20:04 Patient is a 58-year-old with a history of hypothyroidism and asthma who presents to the ED with complaint of right ear pain and right skull pain behind her right ear. She states she woke up this morning and felt pain in her right ear. She thought she slept on it wrong. The pain progressed to her skull just behind her right ear and has been worsening all day. She denies any fevers or chills. She does admit to taking 2 muscle relaxers and one Tylenol 3 without any relief. She denies any recent URI. She denies any recent travel. The patient states the pain is unrelenting. She denies any headache and states the pain is solely on the skull. Past History - Past Medical History Allergies/Adverse Reactions: Allergies Allergy/AdvReac Type Severity Reaction Status Date / Time aspirin Allergy Severe Difficulty Verified 05/18/19 19:16 Breathing SEAFOOD Allergy Severe Difficulty Uncoded 05/18/19 19:16 Breathing Home Medications: Ambulatory Orders Levothyroxine [Synthroid -] 100 mcg PO DAILY 11/28/13 Albuterol Sulfate Inhaler - [Ventolin HFA Inhaler -] 1 puff IH QID PRN 05/23/17 Hydrocodone/Acetaminophen [Hydrocodone-Acetamin 5-325 mg] 1 each PO HS PRN 05/23/17 Amoxicillin/Potassium Clav [Augmentin 875-125 Tablet] 1 each PO BID 10 Days #20 tablet 05/18/19 Anemia: No Asthma: Yes (MILD) Cancer: No Cardiac Disorders: No CVA: No COPD: Yes (MILD) CHF: No Dementia: No Diabetes: No GI Disorders: Yes (ENLARGED PANCREATIC DUCT.) Disorders: No HTN: No Hypercholesterolemia: No Liver Disease: No Seizures: No Thyroid Disease: Yes (HYPO) Other medical history: chronic neck pain - Surgical History Abdominal Surgery: Yes (SEE BELOW) Appendectomy: Yes ( CHILD) Cardiac Surgery: No Cholecystectomy: No Lung Surgery: No Neurologic Surgery: No Orthopedic Surgery: Yes (ARTHROSCOPY R KNEE) - Immunization History Td Vaccination: No TDAP Vaccination: No Immunization Up to Date: Yes - Psycho Social/Smoking Cessation Hx Smoking Status: Yes Smoking History: Never smoked Have you smoked in the past 12 months: No Number of Cigarettes Smoked Daily: 6 If you are a former smoker, when did you quit?: 2014 'Breaking Loose' booklet given: 12/06/13 Hx Alcohol Use: No Drug/Substance Use Hx: No Substance Use Type: None Hx Substance Use Treatment: No Review of Systems - Review of Systems Comments:: 05/18/19 20:06 - Review of Systems Able to Perform ROS?: Yes Constitutional: No: Fever, Chills, Loss of Appetite, Night Sweats, Weakness HEENTM: No: Eye Pain, Vision changes, Throat Pain, Throat Swelling, Mouth Pain, Difficulty Swallowing; positive right ear pain and right skull pain Respiratory: No: Cough, Shortness of Breath, Wheezing, Sputum Production Cardiac (ROS): No: Chest Pain, Chest Tightness, Palpitations, Irregular Heart Beat, Edema ABD/GI: No: Nausea, Vomiting, Abdominal Pain, Diarrhea : No Dysuria, No Hematuria, No Frequency, No Urgency Musculoskeletal: No: Muscle Pain, Back Pain, Joint Pain, Muscle Weakness, Neck Pain Integumentary: No: Lesions, Rash Neurological: No: Headache, Numbness, Tingling, Weakness, Speech Difficulties *Physical Exam - Vital Signs Last Vital Signs Temp Pulse Resp BP Pulse Ox 97.5 F L 86 18 121/100 98 05/18/19 19:12 05/18/19 19:12 05/18/19 19:12 05/18/19 19:12 05/18/19 19:12 - Physical Exam 05/18/19 20:07 - Physical Exam General Appearance: Nourished, Appropriately Dressed, No Distress HEENT: EOMI, Normal Voice, No Pharyngeal Erythema, No Muffled/Hoarse voice, No Tonsillar Exudate, No Tonsillar Erythema, No Nasal Congestion, No Rhinorrhea, Hearing Grossly Normal; significant tenderness to palpation to the right mastoid region and right occipital region. No muscle tenderness to the neck appreciated. Right TM dull and appears scarred. No TM perforation appreciated. Left TM within normal limits but also does appear scarred. Neck: Supple, No Lymphadenopathy (R), No Lymphadenopathy (L), No Rigidity, No Decreased range of motion; no tenderness to palpation to the diffuse neck Respiratory/Chest: Lungs Clear, Normal Breath Sounds. No Respiratory Distress, No Accessory Muscle Use Cardiovascular: Regular Rhythm, Regular Rate, S1, S2 Gastrointestinal/Abdominal: Normal Bowel Sounds, Soft. Non-tender, No Guarding, No Rebound, No Rigidity Musculoskeletal: Normal Inspection. No Decreased Range of Motion Extremity: Normal Capillary Refill, Normal Inspection Integumentary: Normal Color, Dry. No Rash Neurologic: autopsy pathologist II-XII NML intact, Fully Oriented, Alert, Normal Mood/Affect, Normal Response ED Treatment Course - LABORATORY CBC & Chemistry Diagram: 05/18/19 19:50 05/18/19 19:50 - RADIOLOGY Radiology Studies Ordered: Category Date Time Status TEMPORAL BONES CT WITH CONTR [CT] Stat CT Scan 05/18/19 19:41 Ordered - Medications Given in the ED: ED Medications Discontinued Medications Generic Name Dose Route Start Last Admin Trade Name Freq PRN Reason Stop Dose Admin Sodium Chloride 1,000 ml 05/18/19 19:40 05/18/19 19:59 Normal Saline - IV 05/18/19 19:41 1,000 ml ONCE ONE Administration Medical Decision Making - Medical Decision Making 05/18/19 20:08 Assessment: Patient is a 58-year-old female with right ear and right mastoid tenderness. Plan: -Saline lock and 1 L of NS ordered -CBC and CMP ordered -CT temporal bones with IV contrast to rule out mastoiditis ordered -Will reassess 05/18/19 21:[address] scan shows no mastoiditis. She appears to have chronic sinusitis. Although the patient has a negative CT scan we will treat her with Augmentin twice daily x10 days. She should follow-up with her primary doctor within 1 to 2 days for repeat evaluation. She has Tylenol 3 at home and can continue to take that for pain. She understands and agrees with this treatment plan and she is stable for discharge. Discharge - Discharge Information Problems reviewed: Yes Clinical Impression/Diagnosis: Otalgia of right ear Condition: Stable Disposition: HOME - Additional Discharge Information Prescriptions: Amoxicillin/Potassium Clav [Augmentin 875-125 Tablet] 1 each PO BID 10 Days #20 tablet - Follow up/Referral Referrals: Jonas Cleveland MD [Primary Care Provider] - 2 Days - Patient Discharge Instructions Patient Printed Discharge Instructions: DI for Ear Pain-Adult Additional Instructions: Your CT scan was negative for mastoiditis but we will still treat you with antibiotics for your ear pain. Take the antibiotics as prescribed and complete the entire course. You can continue to take the Tylenol 3 for your ear pain. Follow-up with your primary doctor within 1 to 2 days for repeat evaluation. Get plenty of rest and drink plenty of fluids. - Post Discharge Activity
[2019-05-18 20:19] LABS: BASO % 0.4 % (0-2.0); EOS % 1.8 % (0-4.5); HEMOGLOBIN 12.9 GM/dL (10.7-15.3); LYMPH % 49.1 % (8-40); MCH 27.5 pg (25.7-33.7); MCHC 32.2 g/dl (32.0-36.0); MEAN CELL VOLUME 85.4 fl (80-96); MEAN PLT VOLUME 8.7 fl (7.5-11.1); NEUT % 41.7 % (42.8-82.8); PLATELET COUNT 333 K/MM3 (134-434); RBC 4.68 M/mm3 (3.60-5.2); WHITE BLOOD COUNT 9.8 K/mm3 (4.0-10.0)
[2019-05-18 20:57] LABS: ALBUMIN 3.8 g/dl (3.4-5.0); BILIRUBIN,TOTAL 0.2 mg/dL (0.2-1); BLOOD UREA NITROGEN 12.9 mg/dL (7-18); POTASSIUM 4.5 mmol/L (3.5-5.1); TOT PROT 7.8 g/dl (6.4-8.2)
[2019-05-18] MEDS ORDERED: AMOX TR/POT CLAV 875MG/125MG TABLETS (FP) PO ONE (21:57)
[2019-05-18] MEDS ORDERED: AMOX TR/POT CLAV 875MG/125MG TABLETS (FP) ONE (21:57)
== END 2019-05-18 22:06 | disposition home or self-care (01) ==
LOC: JERFT 19:10
DX: H92.01 Otalgia, right ear (principal)
CPT/HCPCS: 36415; 70481-TC; 80053; 85025; 99285-25; Q9967

== ENCOUNTER 2020-02-27 19:59 | Emergency (ER) | payer OTHER ==
[2020-02-27] MEDS ORDERED: ONDANSETRON *ODT* 4 MG TABLET SL ONE (20:20)
[2020-02-27 20:29] VITALS: BMI 42.0
[2020-02-27] MEDS ORDERED: ONDANSETRON *ODT* 4 MG TABLET ONE (22:23)
[2020-02-27 22:29] LABS: ARTERIAL BLD GAS O2 SATURATION 60.1 mmHg (95-98); ARTERIAL BLOOD GAS BASE EXCESS -1.6 mmol/L (-2-2); ARTERIAL BLOOD GAS pH 7.383 (7.350-7.450)
[2020-02-27 22:57] LABS: ALLENS TEST POSITIVE
[2020-02-27 23:01] LABS: ARTERIAL BLOOD GAS PO2 31.8 mmHg (80-100)
[2020-02-27 23:54] VITALS: BP 118/75; PULSE 75; TEMP 98.1
== END 2020-02-27 23:30 | disposition home or self-care (01) ==
LOC: JER 19:59
DX: J70.5 Respiratory conditions due to smoke inhalation (principal)
CPT/HCPCS: 36600; 71045-TC-FY; 82375; 82803; 93005; 93010; 99284-25; Q0162

== ENCOUNTER 2020-10-18 08:36 | Emergency (ER) | payer OTHER ==
[2020-10-18 08:52] VITALS: BMI 32.9
[2020-10-18] MEDS ORDERED: ACETAMINOPHEN 1000 MG/100 ML VIAL (NON FORMULARY) IVPB ONE (09:21)
[2020-10-18] MEDS ORDERED: FAMOTIDINE 20 MG/50 ML IVPB 20 MG/50 ML MG IVPB ONE ×2 (09:21→09:23)
[2020-10-18] MEDS ORDERED: ACETAMINOPHEN INJECTION 100 ML IVPB ONE (09:23)
[2020-10-18 09:45] LABS: VENOUS BASE EXCESS -0.1 mmol/L (-2-2); VENOUS PCO2 32.4 mmHg (38-52); VENOUS PH 7.465 (7.310-7.410)
[2020-10-18 09:51] LABS: INR 1.09 (0.83-1.09); PROTHROMBIN TIME (PATIENT) 13.2 SEC (9.7-13.0)
[2020-10-18 10:39] LABS: BASO % 0.3 % (0-2.0); HEMATOCRIT 39.2 % (32.4-45.2); HEMOGLOBIN 13.1 GM/dL (10.7-15.3); LYMPH % 16.8 % (8-40); MCH 27.9 pg (25.7-33.7); MCHC 33.4 g/dl (32.0-36.0); MEAN CELL VOLUME 83.7 fl (80-96); MEAN PLT VOLUME 8.8 fl (7.5-11.1); MONO % 7.7 % (3.8-10.2); NEUT % 75.2 % (42.8-82.8); PLATELET COUNT 230 10^3/uL (134-434); RBC 4.69 M/mm3 (3.60-5.2); RDW 15.2 % (11.6-15.6); WHITE BLOOD COUNT 9.1 K/mm3 (4.0-10.0)
[2020-10-18] MEDS ORDERED: DICYCLOMINE HCL 20 MG/2 ML AMPUL IM ONE (10:55)
[2020-10-18] MEDS ORDERED: oxyCODONE HCL 5 MG TABLET PO ONE (11:08)
[2020-10-18 11:36] LABS: ALBUMIN 3.5 g/dl (3.4-5.0); ALK PHOS 108 U/L (45-117); ANION GAP 9 MMOL/L (8-16); BILIRUBIN,DIRECT 0.1 mg/dL (0.0-0.2); BILIRUBIN,TOTAL 0.3 mg/dL (0.2-1); BLOOD UREA NITROGEN 11.2 mg/dL (7-18); CALCIUM 8.8 mg/dL (8.5-10.1); CHLORIDE 105 mmol/L (98-107); CO2 25 mmol/L (21-32); CREATININE 1.1 mg/dL (0.55-1.3); GLUCOSE,RANDOM 117 mg/dL (74-106); LDH 205 U/L (84-246); SGOT/AST 28 U/L (15-37); SGPT/ALT 30 U/L (13-61); SODIUM 139 mmol/L (136-145); TOT PROT 7.2 g/dl (6.4-8.2)
[2020-10-18] MEDS ORDERED: oxyCODONE HCL 5 MG TABLET ONE (11:38)
[2020-10-18 12:08] LABS: SARS COV-2 MOLECULAR Presumptive Positive (Negative)
[2020-10-18 13:08] LABS: URINE APPEARANCE CLOUDY; URINE BILIRUBIN NEGATIVE (NEGATIVE); URINE COLOR YELLOW; URINE GLUCOSE (UA) NEGATIVE (NEGATIVE); URINE KETONE TRACE (NEGATIVE); URINE LEUK ESTERASE NEGATIVE (NEGATIVE); URINE NITRITE NEGATIVE (NEGATIVE); URINE PROTEIN TRACE (NEGATIVE); URINE UROBILINOGEN 0.2 mg/dL (0.2-1.0)
[2020-10-18 16:38] VITALS: BP 110/68; PULSE 89; TEMP 98.6
[2020-10-20 08:10] LABS: SARS-CoV-2 NAA Detected (Not Detected)
== END 2020-10-18 16:37 | disposition home or self-care (01) ==
LOC: JER 08:36
PROC: 3E0333Z Introduction of Anti-inflammatory into Peripheral Vein, Percutaneous Approach (ICD-10-PCS; principal; 2020-10-18)
PROC: 3E033GC Introduction of Other Therapeutic Substance into Peripheral Vein, Percutaneous Approach (ICD-10-PCS; 2020-10-18)
PROC: 3E023GC Introduction of Other Therapeutic Substance into Muscle, Percutaneous Approach (ICD-10-PCS; 2020-10-18)
DX: U07.1 COVID-19 (principal); R10.9 Unspecified abdominal pain
CPT/HCPCS: 36415; 71045-TC-FY; 80053; 81003; 82248; 82550; 82553; 82728; 82803; 83605; 83615; 83880; 84484; 85025; 85379; 85610; 85730; 86140; 87040; 87086; 93005; 93010; 99285-25; C9803; J0131; U0003; U0005

== ENCOUNTER 2020-10-20 20:08 | Emergency (ER) | payer OTHER ==
[2020-10-20 20:58] VITALS: BMI 32.5
[2020-10-20 21:27] LABS: BASO % 0.4 % (0-2.0); HEMATOCRIT 38.4 % (32.4-45.2); HEMOGLOBIN 12.7 GM/dL (10.7-15.3); LYMPH % 20.9 % (8-40); MCH 27.2 pg (25.7-33.7); MCHC 32.9 g/dl (32.0-36.0); MEAN CELL VOLUME 82.6 fl (80-96); MEAN PLT VOLUME 8.6 fl (7.5-11.1); MONO % 7.6 % (3.8-10.2); NEUT % 71.1 % (42.8-82.8); PLATELET COUNT 211 10^3/uL (134-434); RBC 4.65 M/mm3 (3.60-5.2); RDW 14.9 % (11.6-15.6); WHITE BLOOD COUNT 6.4 K/mm3 (4.0-10.0)
[2020-10-20] MEDS ORDERED: CASIRIVIMAB/IMDEVIMAB 10 ML in SODIUM CHLORIDE 100 ML IVPB ONE (21:34)
[2020-10-20 21:49] LABS: CHLORIDE 98 mmol/L (98-107); SODIUM 133 mmol/L (136-145)
[2020-10-20 21:50] LABS: CALCIUM 8.9 mg/dL (8.5-10.1)
[2020-10-20 21:51] LABS: ANION GAP 10 MMOL/L (8-16); BLOOD UREA NITROGEN 11.4 mg/dL (7-18); CO2 26 mmol/L (21-32); GLUCOSE,RANDOM 111 mg/dL (74-106)
[2020-10-20] MEDS ORDERED: AZITHROMYCIN IVPB 500 MG in DEXTROSE 5%-WATER - 250 ML IVPB ONE (21:58)
[2020-10-20] MEDS ORDERED: CEFTRIAXONE 1 GM in DEXTROSE 5%-WATER - 100 ML IVPB ONE (21:58)
[2020-10-20] MEDS ORDERED: DEXAMETHASONE SOD PHOSPHATE 10 MG/1 ML VIAL IVPUSH ONE (21:58)
[2020-10-20] MEDS ORDERED: AZITHROMYCIN IVPB 500 MG/250 ML BAG IVPB ONE (22:16)
[2020-10-20] MEDS ORDERED: CEFTRIAXONE 1 GM/50 ML BAG ONE (22:16)
[2020-10-20] MEDS ORDERED: DEXAMETHASONE SOD PHOSPHATE 10 MG/1 ML VIAL ONE (22:16)
[2020-10-21] MEDS ORDERED: ACETAMINOPHEN 500 MG TABLET (FP) PO ONE (00:16)
[2020-10-21] MEDS ORDERED: ACETAMINOPHEN 325 MG TABLET (FP) PO ONE (00:56)
[2020-10-21] MEDS ORDERED: ACETAMINOPHEN 325 MG TABLET (FP) ONE (01:04)
[2020-10-21 01:54] VITALS: BP 111/68; PULSE 78; TEMP 99
== END 2020-10-21 03:04 | disposition home or self-care (01) ==
LOC: JER 20:08
PROC: 3E03329 Introduction of Other Anti-infective into Peripheral Vein, Percutaneous Approach (ICD-10-PCS; principal; 2020-10-20)
PROC: 3E033NZ Introduction of Analgesics, Hypnotics, Sedatives into Peripheral Vein, Percutaneous Approach (ICD-10-PCS; 2020-10-20)
DX: J12.82 Pneumonia due to coronavirus disease 2019 (principal)
CPT/HCPCS: 36415; 71045-TC-FY; 71275-TC; 80048; 82550; 82553; 84484; 85025; 93005; 93010; 99284-25; J1100; Q9967

== ENCOUNTER 2020-10-21 16:33 | Inpatient (IN) | payer OTHER ==
[2020-10-21] MEDS ORDERED: ACETAMINOPHEN 325 MG TABLET (FP) PO ONE (17:14)
[2020-10-21] MEDS ORDERED: SODIUM CHLORIDE 1,000 ML IV STA (17:20)
[2020-10-21] MEDS ORDERED: ACETAMINOPHEN 1000 MG/100 ML VIAL (NON FORMULARY) IVPB ONE (17:20)
[2020-10-21] MEDS ORDERED: DEXAMETHASONE SOD PHOSPHATE 4 MG/1 ML VIAL IVPUSH ONE (17:33)
[2020-10-21] MEDS ORDERED: ACETAMINOPHEN INJECTION 100 ML IVPB ONE (17:45)
[2020-10-21] MEDS ORDERED: DEXAMETHASONE SOD PHOSPHATE 10 MG/1 ML VIAL ONE (17:45)
[2020-10-21] MEDS ORDERED: AZITHROMYCIN 250 MG TABLET PO ONE (18:07)
[2020-10-21] MEDS ORDERED: AZITHROMYCIN 250 MG TABLET ONE (18:33)
[2020-10-21 21:31] LABS: BASO % 0.2 % (0-2.0); HEMOGLOBIN 12.4 GM/dL (10.7-15.3); LYMPH % 7.2 % (8-40); MCH 27.3 pg (25.7-33.7); MCHC 33.5 g/dl (32.0-36.0); MEAN CELL VOLUME 81.5 fl (80-96); MEAN PLT VOLUME 8.5 fl (7.5-11.1); MONO % 2.7 % (3.8-10.2); NEUT % 89.9 % (42.8-82.8); PLATELET COUNT 215 10^3/uL (134-434); RBC 4.55 M/mm3 (3.60-5.2); RDW 14.8 % (11.6-15.6); WHITE BLOOD COUNT 8.9 K/mm3 (4.0-10.0)
[2020-10-21 21:46] LABS: CHLORIDE 103 mmol/L (98-107); SODIUM 135 mmol/L (136-145)
[2020-10-21 21:48] LABS: CALCIUM 8.4 mg/dL (8.5-10.1)
[2020-10-21 21:51] LABS: ALBUMIN 3.2 g/dl (3.4-5.0); ANION GAP 8 MMOL/L (8-16); BLOOD UREA NITROGEN 13.1 mg/dL (7-18); CO2 24 mmol/L (21-32); GLUCOSE,RANDOM 142 mg/dL (74-106)
[2020-10-21 21:52] LABS: CREATININE 1.1 mg/dL (0.55-1.3); SGOT/AST 71 U/L (15-37); SGPT/ALT 46 U/L (13-61)
[2020-10-21 21:54] LABS: BILIRUBIN,TOTAL 0.4 mg/dL (0.2-1)
[2020-10-21 21:55] LABS: ALK PHOS 84 U/L (45-117)
[2020-10-21] MEDS ORDERED: ALBUTEROL SO4 HFA INHALER IH PRN (22:31)
[2020-10-21] MEDS ORDERED: BUDESONIDE/FORMETEROL FUMARATE 80/4.5 mcg INHALER IH SCH (22:45)
[2020-10-21] MEDS ORDERED: methylPREDNISolone NA SUCC 40 MG/1 ML VIAL IVPUSH SCH (22:45)
[2020-10-21] MEDS ORDERED: methylPREDNISolone NA SUCC 40 MG/1 ML VIAL ONE (23:56)
[2020-10-22] MEDS: guaiFENesin/CODEINE 5 ML UNIT-DOSE CUPS PO PRN ×3 (02:09→22:06)
[2020-10-22 03:08] VITALS: BMI 33.1
[2020-10-22] MEDS: ACETAMINOPHEN 325 MG TABLET (FP) PO PRN (05:22)
[2020-10-22] MEDS: LEVOTHYROXINE NA 88 MCG TABLET (FP) PO SCH (06:01)
[2020-10-22 06:33] LABS: PH,URINE 5.5 (5.0-8.0); URINE APPEARANCE CLEAR; URINE BILIRUBIN NEGATIVE (NEGATIVE); URINE COLOR YELLOW; URINE GLUCOSE (UA) NEGATIVE (NEGATIVE); URINE KETONE NEGATIVE (NEGATIVE); URINE LEUK ESTERASE NEGATIVE (NEGATIVE); URINE NITRITE NEGATIVE (NEGATIVE); URINE PROTEIN TRACE (NEGATIVE); URINE UROBILINOGEN 0.2 mg/dL (0.2-1.0)
[2020-10-22] MEDS ORDERED: FAMOTIDINE 10 MG TABLET PO SCH (10:00)
[2020-10-22] MEDS ORDERED: CHOLECALCIFEROL (VIT D3) 5000 UNITS (125 MCG) CAP PO SCH (10:00)
[2020-10-22] MEDS ORDERED: methylPREDNISolone NA SUCC 40 MG/1 ML VIAL IVPUSH SCH (10:00)
[2020-10-22 10:47] LABS: BASO % 0.3 % (0-2.0); HEMATOCRIT 38.7 % (32.4-45.2); HEMOGLOBIN 12.8 GM/dL (10.7-15.3); LYMPH % 17.8 % (8-40); MCH 27.6 pg (25.7-33.7); MCHC 33.1 g/dl (32.0-36.0); MEAN CELL VOLUME 83.4 fl (80-96); MEAN PLT VOLUME 8.8 fl (7.5-11.1); MONO % 3.4 % (3.8-10.2); NEUT % 78.5 % (42.8-82.8); PLATELET COUNT 250 10^3/uL (134-434); RBC 4.64 M/mm3 (3.60-5.2); RDW 14.9 % (11.6-15.6); WHITE BLOOD COUNT 7.4 K/mm3 (4.0-10.0)
[2020-10-22 10:57] LABS: INR 1.09 (0.83-1.09); PROTHROMBIN TIME (PATIENT) 13.2 SEC (9.7-13.0)
[2020-10-22 10:59] LABS: ACTIVATED PTT 27.8 SECONDS (25.2-36.5)
[2020-10-22] MEDS ORDERED: cefTRIAXone SODIUM 1 GM VIAL ONE (11:00)
[2020-10-22] MEDS ORDERED: DEXTROSE 5%-WATER - 50 ML IVPB ONE (11:00)
[2020-10-22 11:19] LABS: CALCIUM 8.7 mg/dL (8.5-10.1)
[2020-10-22 11:20] LABS: BLOOD UREA NITROGEN 15.2 mg/dL (7-18); MAGNESIUM 2.8 mg/dL (1.8-2.4)
[2020-10-22] MEDS: ASCORBIC ACID 500 MG TABLET (FP) PO SCH (11:20)
[2020-10-22] MEDS: ZINC SULFATE 220 MG CAPSULE (FP) PO SCH (11:20)
[2020-10-22] MEDS: CHOLECALCIFEROL (VIT D3) 1,000 UNIT (25 MCG) TABLET PO SCH (11:20)
[2020-10-22 11:23] LABS: PHOSPHOROUS 3.7 mg/dL (2.5-4.9)
[2020-10-22] MEDS: CEFTRIAXONE 1 GM in DEXTROSE 5%-WATER - 50 ML IVPB SCH (11:26)
[2020-10-22] MEDS: ENOXAPARIN NA (PORCINE) 40 MG/0.4 ML DISP.SYRIN SQ SCH (11:39)
[2020-10-22] MEDS: AZITHROMYCIN IVPB 500 MG/250 ML BAG IVPB SCH (12:57)
[2020-10-22] MEDS ORDERED: DEXAMETHASONE SOD PHOSPHATE 10 MG/1 ML VIAL IM SCH (15:30)
[2020-10-22] MEDS ORDERED: DEXAMETHASONE SOD PHOSPHATE 4 MG/1 ML VIAL IM SCH (15:45)
[2020-10-22] MEDS ORDERED: REMDESIVIR 200 MG in SODIUM CHLORIDE 250 ML IVPB ONE (16:00)
[2020-10-22] MEDS ORDERED: PATIENT'S OWN MEDICATION (NON-FORMULARY) (Oxycodone Hcl/Acetaminophen [Oxycodone-Acetamino PO SCH ×2 (17:11→22:00)
[2020-10-22] MEDS ORDERED: oxyCODONE HCL 5 MG TABLET PO PRN (17:27)
[2020-10-22] MEDS ORDERED: ACETAMINOPHEN 325 MG TABLET (FP) PO PRN (17:28)
[2020-10-22] MEDS: BENZOCAINE/MENTH/CETYLPYRD CL 1 EACH LOZENGE MM PRN ×2 (17:40→22:06)
[2020-10-22] MEDS: BUDESONIDE/FORMETEROL FUMARATE 160/4.5 mcg INHALER IH SCH (21:53)
[2020-10-23] MEDS: ACETAMINOPHEN 325 MG TABLET (FP) PO PRN (06:22)
[2020-10-23] MEDS: LEVOTHYROXINE NA 88 MCG TABLET (FP) PO SCH (06:22)
[2020-10-23 09:10] LABS: BASO % 0.2 % (0-2.0); HEMATOCRIT 39.4 % (32.4-45.2); LYMPH % 30.7 % (8-40); MCH 27.7 pg (25.7-33.7); MCHC 32.9 g/dl (32.0-36.0); MEAN CELL VOLUME 84.1 fl (80-96); MEAN PLT VOLUME 8.6 fl (7.5-11.1); MONO % 6.7 % (3.8-10.2); NEUT % 62.4 % (42.8-82.8); PLATELET COUNT 275 10^3/uL (134-434); RBC 4.68 M/mm3 (3.60-5.2); WHITE BLOOD COUNT 6.8 K/mm3 (4.0-10.0)
[2020-10-23 09:42] LABS: BILIRUBIN,TOTAL 0.5 mg/dL (0.2-1)
[2020-10-23 09:43] LABS: CREATININE 0.9 mg/dL (0.55-1.3)
[2020-10-23 09:44] LABS: PHOSPHOROUS 2.6 mg/dL (2.5-4.9)
[2020-10-23 09:45] LABS: TOT PROT 6.4 g/dl (6.4-8.2)
[2020-10-23] MEDS ORDERED: DEXTROSE 5%-WATER - 50 ML IVPB ONE (09:56)
[2020-10-23] MEDS ORDERED: cefTRIAXone SODIUM 1 GM VIAL ONE (09:56)
[2020-10-23] MEDS: ENOXAPARIN NA (PORCINE) 40 MG/0.4 ML DISP.SYRIN SQ SCH (09:57)
[2020-10-23 09:59] LABS: CALCIUM 8.6 mg/dL (8.5-10.1)
[2020-10-23] MEDS: CEFTRIAXONE 1 GM in DEXTROSE 5%-WATER - 50 ML IVPB SCH (09:59)
[2020-10-23] MEDS: guaiFENesin/CODEINE 5 ML UNIT-DOSE CUPS PO PRN (09:59)
[2020-10-23] MEDS: DEXAMETHASONE SOD PHOSPHATE 4 MG/1 ML VIAL IVPUSH SCH (09:59)
[2020-10-23 10:00] LABS: BLOOD UREA NITROGEN 15.5 mg/dL (7-18)
[2020-10-23] MEDS: FAMOTIDINE 20 MG TABLET PO SCH (10:00)
[2020-10-23] MEDS: BUDESONIDE/FORMETEROL FUMARATE 160/4.5 mcg INHALER IH SCH ×2 (10:00→21:47)
[2020-10-23] MEDS: ZINC SULFATE 220 MG CAPSULE (FP) PO SCH (10:00)
[2020-10-23] MEDS: CHOLECALCIFEROL (VIT D3) 1,000 UNIT (25 MCG) TABLET PO SCH (10:00)
[2020-10-23] MEDS: ASCORBIC ACID 500 MG TABLET (FP) PO SCH (10:00)
[2020-10-23 10:03] LABS: MAGNESIUM 2.7 mg/dL (1.8-2.4)
[2020-10-23] MEDS: BENZOCAINE/MENTH/CETYLPYRD CL 1 EACH LOZENGE MM PRN (10:03)
[2020-10-23] MEDS: AZITHROMYCIN IVPB 500 MG/250 ML BAG IVPB SCH (10:03)
[2020-10-23 10:15] LABS: ALBUMIN 2.8 g/dl (3.4-5.0)
[2020-10-23] MEDS: REMDESIVIR 100 MG in SODIUM CHLORIDE 250 ML IVPB SCH (15:32)
[2020-10-24] MEDS: LEVOTHYROXINE NA 88 MCG TABLET (FP) PO SCH (06:08)
[2020-10-24 09:24] LABS: BASO % 0.3 % (0-2.0); EOS % 0.1 % (0-4.5); HEMATOCRIT 38.6 % (32.4-45.2); HEMOGLOBIN 12.9 GM/dL (10.7-15.3); LYMPH % 50.1 % (8-40); MCH 27.9 pg (25.7-33.7); MCHC 33.5 g/dl (32.0-36.0); MEAN CELL VOLUME 83.4 fl (80-96); MEAN PLT VOLUME 8.2 fl (7.5-11.1); MONO % 9.2 % (3.8-10.2); NEUT % 40.3 % (42.8-82.8); PLATELET COUNT 325 10^3/uL (134-434); RBC 4.63 M/mm3 (3.60-5.2); RDW 14.9 % (11.6-15.6); WHITE BLOOD COUNT 5.6 K/mm3 (4.0-10.0)
[2020-10-24 09:57] LABS: CALCIUM 8.7 mg/dL (8.5-10.1)
[2020-10-24 09:58] LABS: BLOOD UREA NITROGEN 11.7 mg/dL (7-18)
[2020-10-24 10:01] LABS: CREATININE 0.9 mg/dL (0.55-1.3)
[2020-10-24] MEDS ORDERED: DEXTROSE 5%-WATER - 50 ML IVPB ONE (10:40)
[2020-10-24] MEDS ORDERED: cefTRIAXone SODIUM 1 GM VIAL ONE (10:40)
[2020-10-24] MEDS: CEFTRIAXONE 1 GM in DEXTROSE 5%-WATER - 50 ML IVPB SCH (11:40)
[2020-10-24] MEDS: DEXAMETHASONE SOD PHOSPHATE 4 MG/1 ML VIAL IVPUSH SCH (11:42)
[2020-10-24] MEDS: ASCORBIC ACID 500 MG TABLET (FP) PO SCH (11:43)
[2020-10-24] MEDS: CHOLECALCIFEROL (VIT D3) 1,000 UNIT (25 MCG) TABLET PO SCH (11:43)
[2020-10-24] MEDS: ZINC SULFATE 220 MG CAPSULE (FP) PO SCH (11:43)
[2020-10-24] MEDS: FAMOTIDINE 20 MG TABLET PO SCH (11:43)
[2020-10-24] MEDS: ENOXAPARIN NA (PORCINE) 40 MG/0.4 ML DISP.SYRIN SQ SCH (11:56)
[2020-10-24] MEDS: BUDESONIDE/FORMETEROL FUMARATE 160/4.5 mcg INHALER IH SCH ×2 (11:56→21:01)
[2020-10-24] MEDS: guaiFENesin/CODEINE 5 ML UNIT-DOSE CUPS PO PRN (13:05)
[2020-10-24] MEDS: AZITHROMYCIN IVPB 500 MG/250 ML BAG IVPB SCH (13:05)
[2020-10-24] MEDS: REMDESIVIR 100 MG in SODIUM CHLORIDE 250 ML IVPB SCH (15:32)
[2020-10-25] MEDS: LEVOTHYROXINE NA 88 MCG TABLET (FP) PO SCH (06:13)
[2020-10-25 09:03] LABS: BASO % 0.2 % (0-2.0); HEMATOCRIT 39.2 % (32.4-45.2); MCH 27.7 pg (25.7-33.7); MCHC 33.2 g/dl (32.0-36.0); MEAN CELL VOLUME 83.2 fl (80-96); MONO % 10.4 % (3.8-10.2); NEUT % 53.4 % (42.8-82.8); PLATELET COUNT 397 10^3/uL (134-434); RBC 4.71 M/mm3 (3.60-5.2); RDW 14.9 % (11.6-15.6)
[2020-10-25 09:29] LABS: CALCIUM 8.8 mg/dL (8.5-10.1)
[2020-10-25 09:30] LABS: BLOOD UREA NITROGEN 12.1 mg/dL (7-18)
[2020-10-25] MEDS ORDERED: DEXTROSE 5%-WATER - 50 ML IVPB ONE (10:01)
[2020-10-25] MEDS ORDERED: cefTRIAXone SODIUM 1 GM VIAL ONE (10:01)
[2020-10-25] MEDS: FAMOTIDINE 20 MG TABLET PO SCH (10:22)
[2020-10-25] MEDS: ZINC SULFATE 220 MG CAPSULE (FP) PO SCH (10:22)
[2020-10-25] MEDS: ASCORBIC ACID 500 MG TABLET (FP) PO SCH (10:22)
[2020-10-25] MEDS: CHOLECALCIFEROL (VIT D3) 1,000 UNIT (25 MCG) TABLET PO SCH (10:22)
[2020-10-25] MEDS: ENOXAPARIN NA (PORCINE) 40 MG/0.4 ML DISP.SYRIN SQ SCH (10:23)
[2020-10-25] MEDS: BUDESONIDE/FORMETEROL FUMARATE 160/4.5 mcg INHALER IH SCH ×2 (10:23→21:55)
[2020-10-25] MEDS: DEXAMETHASONE SOD PHOSPHATE 4 MG/1 ML VIAL IVPUSH SCH (11:06)
[2020-10-25] MEDS: CEFTRIAXONE 1 GM in DEXTROSE 5%-WATER - 50 ML IVPB SCH (11:06)
[2020-10-25] MEDS: REMDESIVIR 100 MG in SODIUM CHLORIDE 250 ML IVPB SCH (16:27)
[2020-10-25] MEDS ORDERED: guaiFENesin/CODEINE 5 ML UNIT-DOSE CUPS PO PRN (17:22)
[2020-10-26] MEDS: LEVOTHYROXINE NA 88 MCG TABLET (FP) PO SCH (06:49)
[2020-10-26 08:41] LABS: HEMATOCRIT 37.6 % (32.4-45.2); HEMOGLOBIN 12.5 GM/dL (10.7-15.3); MCH 27.8 pg (25.7-33.7); MCHC 33.3 g/dl (32.0-36.0); MEAN CELL VOLUME 83.4 fl (80-96); MEAN PLT VOLUME 8.1 fl (7.5-11.1); PLATELET COUNT 431 10^3/uL (134-434); RBC 4.51 M/mm3 (3.60-5.2); RDW 14.8 % (11.6-15.6); WHITE BLOOD COUNT 8.2 K/mm3 (4.0-10.0)
[2020-10-26 09:11] LABS: ALBUMIN 2.8 g/dl (3.4-5.0); CALCIUM 8.8 mg/dL (8.5-10.1)
[2020-10-26 09:12] LABS: BLOOD UREA NITROGEN 12.6 mg/dL (7-18)
[2020-10-26 09:15] LABS: CREATININE 0.9 mg/dL (0.55-1.3)
[2020-10-26 09:16] LABS: BILIRUBIN,TOTAL 0.5 mg/dL (0.2-1); TOT PROT 6.3 g/dl (6.4-8.2)
[2020-10-26 10:33] LABS: ANISOCYTOSIS 0; HELMET CELLS 0; HOWELL-JOLLY BODIES 0; MACROCYTOSIS 0; OVALOCYTE 0; PLATELET ESTIMATE NORMAL; ROULEAU 0; SICKELED CELLS 0; TARGET CELLS 0; TEAR DROP CELLS 0; TOXIC GRANULATION 0
[2020-10-26] MEDS ORDERED: cefTRIAXone SODIUM 1 GM VIAL ONE (11:25)
[2020-10-26] MEDS ORDERED: DEXTROSE 5%-WATER - 50 ML IVPB ONE (11:25)
[2020-10-26] MEDS: ENOXAPARIN NA (PORCINE) 40 MG/0.4 ML DISP.SYRIN SQ SCH (11:33)
[2020-10-26] MEDS: ZINC SULFATE 220 MG CAPSULE (FP) PO SCH (11:34)
[2020-10-26] MEDS: FAMOTIDINE 20 MG TABLET PO SCH (11:34)
[2020-10-26] MEDS: CHOLECALCIFEROL (VIT D3) 1,000 UNIT (25 MCG) TABLET PO SCH (11:34)
[2020-10-26] MEDS: CEFTRIAXONE 1 GM in DEXTROSE 5%-WATER - 50 ML IVPB SCH (11:35)
[2020-10-26] MEDS: ASCORBIC ACID 500 MG TABLET (FP) PO SCH (11:35)
[2020-10-26] MEDS: DEXAMETHASONE SOD PHOSPHATE 4 MG/1 ML VIAL IVPUSH SCH (11:36)
[2020-10-26] MEDS: REMDESIVIR 100 MG in SODIUM CHLORIDE 250 ML IVPB SCH (16:07)
[2020-10-26 20:00] VITALS: BP 128/82; PULSE 72; TEMP 98
== END 2020-10-26 18:00 | disposition home or self-care (01) | DRG 177 ==
LOC: JER 16:33 → JERBED 20:09 → J5S 10-22 01:56
PROVIDERS: ADMIT Internal Medicine
PROC: XW033E5 Introduction of Remdesivir Anti-infective into Peripheral Vein, Percutaneous Approach, New Technology Group 5 (ICD-10-PCS; principal; 2020-10-22)
DX: U07.1 COVID-19 (principal); J12.82 Pneumonia due to coronavirus disease 2019; J96.22 Acute and chronic respiratory failure with hypercapnia; J96.21 Acute and chronic respiratory failure with hypoxia; M62.82 Rhabdomyolysis; J44.9 Chronic obstructive pulmonary disease, unspecified; E03.9 Hypothyroidism, unspecified; E66.9 Obesity, unspecified; Z68.33 Body mass index [BMI] 33.0-33.9, adult; E78.5 Hyperlipidemia, unspecified
CPT/HCPCS: 36415; 70450-TC; 71045-TC-FY; 71046-TC-FY; 73060-TC-RT-FY; 73560-TC-LT-FY; 80048; 80053; 81003; 82550; 82553; 82728; 83615; 83735; 84100; 84484; 85025; 85379; 85610; 85730; 86140; 93005; 93010; 94010; 94761; 97116-GP; 97162-GP; 99285-25; C9399; C9803; J0131; U0003; U0005

== ENCOUNTER 2022-06-25 06:05 | Day surgery (SDC) | payer OTHER ==
[2022-06-17 18:06] VITALS: BMI 37.5
[2022-06-25 06:44] VITALS: RESP 16
[2022-06-25] MEDS ORDERED: EPINEPHrine 1:1,000 1,000 MCG/ML ML ONE (07:10)
[2022-06-25] MEDS ORDERED: BUPIVACAINE HCL/PF 2.5 MG/ML - 30 ML VIAL IJ ONE (07:10)
[2022-06-25] MEDS ORDERED: PROPOFOL 20 ML ONE (08:13)
[2022-06-25] MEDS ORDERED: ONDANSETRON 4 MG/2 ML VIAL IVPUSH PRN (08:54)
[2022-06-25] MEDS ORDERED: oxyCODONE HCL 5 MG TABLET PO PRN (08:54)
[2022-06-25] MEDS ORDERED: ACETAMINOPHEN 1000 MG/100 ML BAG IVPB PRN (08:55)
[2022-06-25] MEDS ORDERED: LACTATED RINGERS SOLUTION 1,000 ML IV SCH (09:00)
[2022-06-25] MEDS ORDERED: FENTANYL CITRATE/PF 50 MCG/ML VIAL ONE ×3 (09:00→09:15)
[2022-06-25] MEDS ORDERED: PROMETHAZINE HCL 25 MG/1 ML VIAL IVPB PRN (09:46)
[2022-06-25] MEDS ORDERED: PROMETHAZINE HCL 25 MG/1 ML VIAL ONE (09:48)
[2022-06-25 09:58] VITALS: TEMP 97.6
[2022-06-25] MEDS ORDERED: oxyCODONE HCL 5 MG TABLET ONE (10:43)
[2022-06-25 11:41] VITALS: BP 149/73; PULSE 78
== END 2022-06-25 11:45 | disposition home or self-care (01) ==
LOC: FASU 06:05
PROVIDERS: ATTEND Orthopaedic Surgery
PROC: 0SBC4ZZ Excision of Right Knee Joint, Percutaneous Endoscopic Approach (ICD-10-PCS; 2022-06-25)
PROC: 0SBC4ZZ Excision of Right Knee Joint, Percutaneous Endoscopic Approach (ICD-10-PCS; principal; 2022-06-25 08:30)
DX: S83.241A Other tear of medial meniscus, current injury, right knee, initial encounter (principal); S83.281A Other tear of lateral meniscus, current injury, right knee, initial encounter; S83.8X1A Sprain of other specified parts of right knee, initial encounter; M65.861 Other synovitis and tenosynovitis, right lower leg; X58.XXXA Exposure to other specified factors, initial encounter; Y93.9 Activity, unspecified; Y92.9 Unspecified place or not applicable
CPT/HCPCS: 94760

== ENCOUNTER 2022-09-23 04:29 | Observation (INO) | payer OTHER ==
[2022-09-23] MEDS ORDERED: ALBUTEROL SO4 2.5/IPRATROPIUM 0.5 INH SOL 3 ML VIAL.NEB. NEB ONE ×5 (05:01→09:12)
[2022-09-23 06:45] LABS: POTASSIUM 5.3 mmol/L (3.5-5.1)
[2022-09-23 06:48] LABS: ALBUMIN 3.6 g/dl (3.4-5.0); BLOOD UREA NITROGEN 16.3 mg/dL (7-18); MAGNESIUM 2.1 mg/dL (1.8-2.4)
[2022-09-23 06:51] LABS: CREATININE 1.2 mg/dL (0.55-1.3)
[2022-09-23 06:52] LABS: TOT PROT 7.6 g/dl (6.4-8.2)
[2022-09-23 06:53] LABS: BILIRUBIN,TOTAL 0.4 mg/dL (0.2-1)
[2022-09-23 07:48] LABS: BASO % 0.5 % (0-2.0); EOS % 0.6 % (0-4.5); HEMATOCRIT 38.4 % (32.4-45.2); HEMOGLOBIN 12.4 GM/dL (10.7-15.3); LYMPH % 9.5 % (8-40); MCH 28.1 pg (25.7-33.7); MCHC 32.3 g/dl (32.0-36.0); MEAN CELL VOLUME 86.8 fl (80-96); MEAN PLT VOLUME 8.7 fl (7.5-11.1); MONO % 9.7 % (3.8-10.2); NEUT % 79.7 % (42.8-82.8); PLATELET COUNT 296 10^3/uL (134-434); RBC 4.43 M/mm3 (3.60-5.2); RDW 14.8 % (11.6-15.6); WHITE BLOOD COUNT 9.6 K/mm3 (4.0-10.0)
[2022-09-23] MEDS ORDERED: ALBUTEROL SO4 2.5/IPRATROPIUM 0.5 INH SOL 3 ML VIAL.NEB. NEB SCH (08:15)
[2022-09-23] MEDS ORDERED: guaiFENesin 200 MG/10 ML 10 ML UNIT-DOSE CUPS PO PRN (10:52)
[2022-09-23] MEDS ORDERED: ALBUTEROL SO4 0.083% IH SOL 2.5 MG/3 ML VIAL.NEB. NEB PRN (10:53)
[2022-09-23] MEDS ORDERED: IPRATROPIUM BR 0.02% 0.5 MG/2.5 ML VIAL.NEB. NEB PRN (11:19)
[2022-09-23] MEDS ORDERED: guaiFENesin 600 MG TABLET.ER (FP) PO SCH (11:30)
[2022-09-23] MEDS ORDERED: SODIUM CHLORIDE 0.9% 500 ML INFUS.BAG IV ONE (12:24)
[2022-09-23] MEDS ORDERED: LEVOTHYROXINE NA 88 MCG TABLET (FP) ONE (13:03)
[2022-09-23] MEDS: LEVOTHYROXINE NA 88 MCG TABLET (FP) PO SCH (13:10)
[2022-09-23] MEDS ORDERED: ACETAMINOPHEN 325 MG TABLET (FP) PO PRN (13:38)
[2022-09-23] MEDS ORDERED: guaiFENesin/D-M SUGAR-FREE/ACLHOL-FREE (200 MG/10 MG) 5 ML PO SCH (14:00)
[2022-09-23] MEDS ORDERED: IPRATROPIUM BR 0.02% 0.5 MG/2.5 ML VIAL.NEB. NEB ONE (15:10)
[2022-09-23] MEDS ORDERED: ACETAMINOPHEN 325 MG TABLET (FP) ONE ×2 (15:11→16:38)
[2022-09-23] MEDS: guaiFENesin/D-M SUGAR-FREE/ACLHOL-FREE (200 MG/10 MG) 5 ML PO SCH ×2 (15:28→22:02)
[2022-09-23 17:55] VITALS: BMI 38.1
[2022-09-23] MEDS: MONTELUKAST NA 10 MG TABLET PO SCH (21:34)
[2022-09-24] MEDS: LEVOTHYROXINE NA 88 MCG TABLET (FP) PO SCH (06:34)
[2022-09-24] MEDS: guaiFENesin/D-M SUGAR-FREE/ACLHOL-FREE (200 MG/10 MG) 5 ML PO SCH (06:34)
[2022-09-24 10:10] LABS: BASO % 0.6 % (0-2.0); EOS % 0.7 % (0-4.5); HEMATOCRIT 40.8 % (32.4-45.2); HEMOGLOBIN 12.8 GM/dL (10.7-15.3); LYMPH % 22.4 % (8-40); MCH 27.4 pg (25.7-33.7); MCHC 31.4 g/dl (32.0-36.0); MEAN CELL VOLUME 87.3 fl (80-96); NEUT % 60.3 % (42.8-82.8); PLATELET COUNT 278 10^3/uL (134-434); RBC 4.67 M/mm3 (3.60-5.2); RDW 14.9 % (11.6-15.6); WHITE BLOOD COUNT 7.9 K/mm3 (4.0-10.0)
[2022-09-24 10:36] LABS: ALBUMIN 3.5 g/dl (3.4-5.0); BLOOD UREA NITROGEN 12.7 mg/dL (7-18); CALCIUM 9.4 mg/dL (8.5-10.1); MAGNESIUM 2.4 mg/dL (1.8-2.4)
[2022-09-24 10:39] LABS: CREATININE 1.1 mg/dL (0.55-1.3); PHOSPHOROUS 2.9 mg/dL (2.5-4.9)
[2022-09-24 10:41] LABS: BILIRUBIN,TOTAL 0.4 mg/dL (0.2-1); TOT PROT 7.2 g/dl (6.4-8.2)
[2022-09-24] MEDS: ENOXAPARIN NA (PORCINE) 40 MG/0.4 ML DISP.SYRIN SQ SCH (11:26)
[2022-09-24] MEDS: guaiFENesin 200 MG/10 ML 10 ML UNIT-DOSE CUPS PO PRN (11:26)
[2022-09-24 14:10] VITALS: RESP 18
[2022-09-24] MEDS ORDERED: REMDESIVIR 200 MG in SODIUM CHLORIDE 250 ML IVPB ONE (16:15)
[2022-09-24] MEDS: MONTELUKAST NA 10 MG TABLET PO SCH (21:37)
[2022-09-25 05:26] VITALS: BP 137/52; PULSE 82; TEMP 99.1
[2022-09-25] MEDS: LEVOTHYROXINE NA 88 MCG TABLET (FP) PO SCH (06:30)
[2022-09-25 10:06] LABS: BASO % 0.4 % (0-2.0); EOS % 1.4 % (0-4.5); HEMATOCRIT 39.4 % (32.4-45.2); HEMOGLOBIN 13.2 GM/dL (10.7-15.3); LYMPH % 36.4 % (8-40); MCH 28.5 pg (25.7-33.7); MCHC 33.6 g/dl (32.0-36.0); MEAN CELL VOLUME 84.8 fl (80-96); MEAN PLT VOLUME 8.3 fl (7.5-11.1); MONO % 13.3 % (3.8-10.2); NEUT % 48.5 % (42.8-82.8); PLATELET COUNT 293 10^3/uL (134-434); RBC 4.64 M/mm3 (3.60-5.2); RDW 15.1 % (11.6-15.6); WHITE BLOOD COUNT 7.2 K/mm3 (4.0-10.0)
[2022-09-25] MEDS: ENOXAPARIN NA (PORCINE) 40 MG/0.4 ML DISP.SYRIN SQ SCH (10:10)
[2022-09-25] MEDS: guaiFENesin 200 MG/10 ML 10 ML UNIT-DOSE CUPS PO PRN (10:10)
[2022-09-25 10:22] LABS: POTASSIUM 3.8 mmol/L (3.5-5.1)
[2022-09-25 10:32] LABS: CALCIUM 9.4 mg/dL (8.5-10.1)
[2022-09-25 10:33] LABS: BLOOD UREA NITROGEN 11.9 mg/dL (7-18)
[2022-09-25 10:36] LABS: CREATININE 1.2 mg/dL (0.55-1.3)
== END 2022-09-25 13:12 | disposition home or self-care (01) ==
LOC: JER 04:29 → JERBED 09:45 → J6S 16:53
PROVIDERS: ADMIT Internal Medicine; ATTEND Internal Medicine
PROC: 3E0F7GC Introduction of Other Therapeutic Substance into Respiratory Tract, Via Natural or Artificial Opening (ICD-10-PCS; principal; 2022-09-23)
PROC: 3E0337Z Introduction of Electrolytic and Water Balance Substance into Peripheral Vein, Percutaneous Approach (ICD-10-PCS; 2022-09-23)
PROC: 3E033GC Introduction of Other Therapeutic Substance into Peripheral Vein, Percutaneous Approach (ICD-10-PCS; 2022-09-23)
PROC: 3E0F7GC Introduction of Other Therapeutic Substance into Respiratory Tract, Via Natural or Artificial Opening (ICD-10-PCS; 2022-09-23)
DX: U07.1 COVID-19 (principal); J12.82 Pneumonia due to coronavirus disease 2019; E03.9 Hypothyroidism, unspecified; J44.9 Chronic obstructive pulmonary disease, unspecified; Z29.8 Encounter for other specified prophylactic measures
CPT/HCPCS: 0241U-QW; 36415; 71046-TC-FY; 80048; 80053; 83735; 84100; 84484; 85025; 86140; 93005; 93010; 94640; 94761; 96365; 99285-25; C9399; G0378

== ENCOUNTER 2023-02-01 04:26 | Day surgery (SDC) | payer OTHER ==
[2023-01-28 10:08] VITALS: BMI 36.6
[2023-02-01] MEDS ORDERED: PROPOFOL 20 ML ONE (11:02)
[2023-02-01] MEDS ORDERED: MIDAZOLAM HCL 2 MG/2 ML SINGLE DOSE VIAL ONE (11:02)
[2023-02-01] MEDS ORDERED: LIDOCAINE HCL/PF 2% SDV 5ML VIAL ONE (11:04)
[2023-02-01] MEDS ORDERED: ONDANSETRON 4 MG/2 ML VIAL ONE (11:04)
[2023-02-01] MEDS ORDERED: ONDANSETRON 4 MG/2 ML VIAL IVPUSH PRN (11:10)
[2023-02-01] MEDS ORDERED: oxyCODONE HCL 5 MG TABLET PO PRN ×2 (11:10)
[2023-02-01] MEDS ORDERED: ACETAMINOPHEN 1000 MG/100 ML BAG IVPB PRN (11:11)
[2023-02-01] MEDS ORDERED: LACTATED RINGERS SOLUTION 1,000 ML IV SCH (11:15)
[2023-02-01] MEDS ORDERED: ceFAZolin SODIUM 1 GM VIAL ONE (11:29)
[2023-02-01] MEDS ORDERED: LIDOCAINE HCL 1%, 10 MG/ML (20ML VIAL) INF ONE ×2 (11:35→11:40)
[2023-02-01] MEDS ORDERED: BUPIVACAINE HCL/PF 0.5% (5 MG/ML) 30 ML VIAL IJ ONE ×2 (11:35→11:40)
[2023-02-01] MEDS ORDERED: oxyCODONE HCL 10 MG SUSTAINED ACTING TABLET ONE (14:04)
[2023-02-01 14:36] VITALS: PULSE 70; RESP 20; TEMP 97.5
[2023-02-01 16:05] VITALS: BP 120/72
== END 2023-02-01 15:35 | disposition home or self-care (01) ==
LOC: JASU-SURG 04:26
PROVIDERS: ATTEND Surgery
PROC: 0JB10ZZ Excision of Face Subcutaneous Tissue and Fascia, Open Approach (ICD-10-PCS; principal; 2023-02-01 11:30)
DX: L72.3 Sebaceous cyst (principal)
CPT/HCPCS: 88304-TC; 94760